=== PATIENT | male | born 1970 | race African-American/Black ===

== ENCOUNTER 2016-12-30 16:56 | Emergency (ER) | payer OTHER ==
[~2016-12-30] VITALS: Ht 177.8 cm; Wt 135.2 kg
--- NOTE | ~2016-12-30 | CT16 ---
[facility] A Service of [facility] / [facility] RADIOLOGY TEXT RESULTS PATIENT: MICHAEL CASILLAS LOCATION: [facility] : 72 UNIT #: [id number] AGE: [address]: Duane Covington MD SEX: M ORDER DR: [id number] [facility] [address] [place], [place] [address] [id number] MR#: [id number] Acc #: [id number] NAME: MICHAEL CASILLAS : 1970 SEX: M STUDY DATE/TIME: 12/30/2016 22:50 UNIT: YUDI ROOM: STUDY DESCRIPTION: CT Angio Chest for PE Attending Physician: Duane Covington M.D. Ordering Physician: Duane Covington M.D. Primary Care Physician: [facility], [facility]. MEDICAL IMAGING REPORT This report is preliminary unless electronic signature is present EXAM CTA chest with contrast, pulmonary embolism protocol. DATE 12/30/2016 HISTORY Elevated D-dimer 735 today. Chest pain today intermittently since this morning. Some dizziness. Hypertension. COMPARISON AP portable chest 08/05/2007. No prior CT chest at this institution for comparison. PROCEDURE 2 mm axial images through the chest after IV contrast administration. 3-D coronal MIP reformatted images were obtained. This CT exam was performed with one or more of the following radiation dose reduction techniques: automatic exposure control, adjustment of mA and/or kV according to patient size, and iterative reconstruction. FINDINGS No pulmonary embolism, aortic aneurysm, or aortic dissection is seen. No pericardial effusion. No pleural effusion. No pneumothorax. Clear lungs. A cyst in the right hepatic lobe measuring 1 cm. 2.2 x 3.4 cm geographic region of low density in the left hepatic lobe adjacent to the falciform ligament, favored to represent a benign finding such as focal hepatic steatosis. No acute osseous abnormalities are identified. Benign calcified granuloma in the right lower lobe. IMPRESSION 1. No acute chest findings. No pulmonary embolism. Clear lungs. [facility] A Service [facility] RADIOLOGY TEXT RESULTS PATIENT: MICHAEL CASILLAS LOCATION: [facility] : 72 UNIT #: [id number] AGE: [address]: Duane Covington MD SEX: M ORDER DR: 2. Geographic region of low-density in the left hepatic lobe measuring 3.4 cm adjacent to the falciform ligament. Benign etiology such as focal hepatic steatosis is favored. Confirmation with MRI abdomen without and with contrast hepatic imaging protocol is recommended on a nonemergent basis. 1 cm cyst in the right hepatic lobe. Dictated by... Rama Cortez M.D. THIS IS AN ELECTRONICALLY VERIFIED REPORT Rama Cortez M.D. at 12/31/2016 9:53 PM Yakov/bere TD: 12/31/2016 11:47 JOB #: [id number] MEDICAL IMAGING REPORT Page 1 of 1 COPY
--- NOTE | ~2016-12-30 | EKG ---
PATIENT: MICHAEL CASILLAS UNIT #: [id number] Ventricular Rate: 50 BPM Atrial Rate: 50 BPM P-R Interval: 174 ms QRS Duration: 102 ms Q-T Interval: 392 ms QTC Calculation(Bezet): 357 ms P Big Arm: 53 degrees Calculated R Big Arm: -20 degrees Calculated T Big Arm: 45 degrees Diagnosis Line: Sinus bradycardia Diagnosis Line: Otherwise normal ECG Diagnosis Line: No previous ECGs available Diagnosis Line: Confirmed by QUIRINO WALTON MD ([id number]) on Diagnosis Line: 12/31/2016 2:01:09 PM INTERPRETING MD: ISAEBLLE BUTCHER
[~2016-12-30 16:56] MED LIST: ASPIRIN81 M1 PO; FLEXERIL PO; LORTAB 5/500 TA1 TA1 PO; NAPROSYN375 MG PO
[2016-12-30 18:16] LABS: BASOPHIL# 0.1 X10e3 (0-0.3); BASOPHIL% 1.1 % (0-2.5); EOSINOPHIL# 0.2 X10e3 (0-0.7); HEMATOCRIT 42.7 % (38.0-50.0); HEMOGLOBIN 14.3 gm/dL (13.0-16.0); LYMPHOCYTE# 1.8 X10e3 (1.0-3.5); LYMPHOCYTE% 34.9 % (17.0-45.0); MEAN CELL VOLUME 88.7 FL (83-96); MEAN CORPUSCULAR HEMOGLOBIN 29.7 PG (28-34); MEAN CORPUSCULAR HGB CONC 33.5 g/dL (30-36); MEAN PLATELET VOLUME 7.3 FL (6.5-11.5); MONOCYTE# 0.4 X10e3 (0-1.0); MONOCYTE% 7.9 % (3.0-12.0); NEUTROPHIL# 2.7 X10e3 (1.5-7.1); NEUTROPHIL% 53.1 % (40-75); PLATELET COUNT 172 X10e3 (140-420); RED BLOOD COUNT 4.81 X10e (3.90-5.60); RED CELL DISTRIBUTION WIDTH 13.6 % (11.0-15.5); WHITE BLOOD COUNT 5.1 X10e3 (4.0-10.5)
[2016-12-30 18:21] LABS: DIFF IND NO
[2016-12-30 18:47] LABS: ALBUMIN SERUM 3.3 g/dL (3.5-5.0); BILIRUBIN, DIRECT 0.2 mg/dL (0.0-0.2); BILIRUBIN,INDIRECT 0.7 mg/dL (0.0-0.9); BILIRUBIN,TOTAL 0.9 mg/dL (0.2-2.0); BUN/CREATININE RATIO 12.5; CALCIUM SERUM 9.6 mg/dL (8.4-10.2); CREATININE SERUM 0.8 mg/dL (0.6-1.4); GLOM FILT RATE Estimated 125.1 mL/min (>60); PROTEIN TOTAL SERUM 6.7 g/dL (6.0-8.3)
[2016-12-30 18:49] LABS: POC - CKMB 1.4 ng/mL (0.0-7.9); POC - TROPONIN <0.05 ng/mL (<=0.05)
[2016-12-30 21:24] LABS: POC - CKMB 1.4 ng/mL (0.0-7.9); POC - TROPONIN <0.05 ng/mL (<=0.05)
== END 2016-12-30 23:57 | disposition home or self-care (01) ==
LOC: CED 16:56
PROVIDERS: Emergency Medicine
DX: R07.9 Chest pain, unspecified (principal); Z87.891 Personal history of nicotine dependence
CPT/HCPCS: 36415; 71275; 80048; 80076; 82553; 84484; 85025; 85379; 93005; 99285; Q9967